=== PATIENT | male | born 1975 | race African-American/Black ===

== ENCOUNTER 2018-01-12 18:51 | Emergency (ER) | payer BC, OTHER ==
[~2018-01-12] VITALS: Ht 175.3 cm; Wt 155.6 kg
[2018-01-12 18:52] VITALS: BP 144/79
[2018-01-12] MEDS ORDERED: CARVEDILOL12.5 MG PO (19:31)
[2018-01-12] MEDS ORDERED: HYDRALAZINE 2525 MG PO (19:32)
[2018-01-12] MEDS ORDERED: AVAPRO75 MG PO (19:34)
[2018-01-12] MEDS ORDERED: NORVASC2.5 MG PO (19:35)
[2018-01-12] MEDS ORDERED: CLONIDINE HCL0.3 M3 PO (19:35)
[2018-01-12] MEDS ORDERED: GLUCOPHAGE1000 MG PO (19:36)
[2018-01-12] MEDS ORDERED: LIPITOR10 MG PO (19:36)
[2018-01-12] MEDS ORDERED: BYDUREON2 MG SUBQ (19:38)
[2018-01-12] MEDS ORDERED: COLCHICINE0.6 MG PO (20:15)
[2018-01-12] MEDS ORDERED: NORCO 5-325 TA1 EACH PO (20:15)
[2018-01-12] MEDS ORDERED: PREDNISONE 20 M20 MG PO (20:15)
== END 2018-01-12 20:32 | disposition home or self-care (01) ==
LOC: ER 18:51
DX: M10.9 Gout, unspecified (principal); I10 Essential (primary) hypertension; E11.9 Type 2 diabetes mellitus without complications; Z88.8 Allergy status to other drugs, medicaments and biological substances